=== PATIENT | female | born 1990 ===

== ENCOUNTER 2023-03-13 07:55 | Outpatient (CLI) | payer OTHER | END 2023-03-13 09:27 | disposition home or self-care (01) | LOC: PRENATAL 07:55 | PROVIDERS: ATTEND Obstetrics & Gynecology Maternal & Fetal Medicine | DX: O35.9XX0 Maternal care for (suspected) fetal abnormality and damage, unspecified, not applicable or unspecified (principal); O35.3XX0 Maternal care for (suspected) damage to fetus from viral disease in mother, not applicable or unspecified; O28.1 Abnormal biochemical finding on antenatal screening of mother; Z3A.19 19 weeks gestation of pregnancy ==